=== PATIENT | male | born 1950 ===

== ENCOUNTER 2025-02-09 11:48 | Day surgery (SDC) | payer MEDICARE, OTHER ==
[~2025-02-09] VITALS: Ht 170.2 cm; Wt 99.8 kg
[~2025-02-09 11:48] MED LIST: Balanced Salt Epinephrine Irrigation Solution 500 mL IR SCH; Lidocaine HCl/Pf 1% 5 ML VIAL XX SCH; Moxifloxacin HCL 0.5 MG/0.1 ML 0.4MLSYR RIGHTEYE SCH; PHENYLEPHRINE\\TROPICAMIDE\\TETRACAINE OPHTHALMIC DILATING SOLN RIGHTEYE PRN; Povidone-Iodine 450 DROP/30 ML Solution ONE; Povidone-Iodine 450 DROP/30 ML Solution RIGHTEYE SCH; Tetracaine HCl/Pf 0.5% Opth Soln 4 ml ONE; Triamcinolone Inj Susp 40 MG / ML 1ML Vial INJ SCH; Triamcinolone Inj Susp 40 MG / ML 1ML Vial ONE
[2025-02-09] MEDS ORDERED: DUPIXENT300 MG/21 (12:26)
[2025-02-09] MEDS ORDERED: ROFL500T (12:27)
[2025-02-09] MEDS ORDERED: Triamcinolone A15 G3 (12:27)
[2025-02-09] MEDS ORDERED: FLUO60T (12:27)
[2025-02-09] MEDS ORDERED: ALBU90OI (12:29)
[2025-02-09] MEDS ORDERED: ROPINIROLE HC0.2510 (12:29)
[2025-02-09] MEDS ORDERED: FUROSEMIDE40 MG (12:29)
[2025-02-09] MEDS ORDERED: FLUT1DIS2 (12:30)
[2025-02-09] MEDS ORDERED: IPRAT-ALBUT 0.5-3 ML (12:31)
[2025-02-09] MEDS ORDERED: POTA10T (12:32)
[2025-02-09] MEDS ORDERED: LOSARTAN-HCTZ1 EACH (12:32)
[2025-02-09] MEDS ORDERED: TIOT18 (12:32)
[2025-02-09] MEDS ORDERED: LATANOPROST2.5 M3 (12:33)
[2025-02-09] MEDS ORDERED: Midazolam HCl 1MG / ML 2ML Vial ONE (13:12)
[2025-02-09] MEDS ORDERED: FentaNYL Citrate 50 MCG/ML 2 ML Injection ONE (13:18)
== END 2025-02-09 14:07 | disposition home or self-care (01) ==
LOC: ORSCSDS 11:48
PROVIDERS: Ophthalmology
PROC: 08RJ3JZ Replacement of Right Lens with Synthetic Substitute, Percutaneous Approach (ICD-10-PCS; principal; 2025-02-09 13:00)
PROC: 08923ZZ Drainage of Right Anterior Chamber, Percutaneous Approach (ICD-10-PCS; principal; 2025-02-09 13:00)
DX: H25.813 Combined forms of age-related cataract, bilateral (principal); H40.1112 Primary open-angle glaucoma, right eye, moderate stage; H40.1121 Primary open-angle glaucoma, left eye, mild stage; Z79.899 Other long term (current) drug therapy
CPT/HCPCS: J2250; J3010; J3301; V2632

== ENCOUNTER 2025-02-16 09:58 | Day surgery (SDC) | payer MEDICARE, OTHER ==
[~2025-02-16] VITALS: Ht 170.2 cm; Wt 99.3 kg
[~2025-02-16 09:58] MED LIST changes: +ALBU90OI; +DUPIXENT300 MG/21; +FLUO60T; +FLUT1DIS2; +FUROSEMIDE40 MG; +IPRAT-ALBUT 0.5-3 ML; +LATANOPROST2.5 M3; +LOSARTAN-HCTZ1 EACH; +Midazolam HCl 1MG / ML 2ML Vial ONE; +Moxifloxacin HCL 0.5 MG/0.1 ML 0.4MLSYR LEFTEYE SCH; -Moxifloxacin HCL 0.5 MG/0.1 ML 0.4MLSYR RIGHTEYE SCH; +PHENYLEPHRINE\\TROPICAMIDE\\TETRACAINE OPHTHALMIC DILATING SOLN LEFTEYE PRN; -PHENYLEPHRINE\\TROPICAMIDE\\TETRACAINE OPHTHALMIC DILATING SOLN RIGHTEYE PRN; +POTA10T; +Povidone-Iodine 450 DROP/30 ML Solution LEFTEYE SCH; -Povidone-Iodine 450 DROP/30 ML Solution RIGHTEYE SCH; +ROFL500T; +ROPINIROLE HC0.2510; +TIOT18; +Triamcinolone A15 G3
--- NOTE | 2025-02-16 11:02 | NUR ---
02/16/25 1102 Tomy Redman TETRACAINE ADMININSTERED AT 1041, PLEDGET PLACED AT 1042.
[2025-02-16] MEDS ORDERED: FentaNYL Citrate 50 MCG/ML 2 ML Injection ONE (11:15)
== END 2025-02-16 11:56 | disposition home or self-care (01) ==
LOC: ORSCSDS 09:58
PROVIDERS: Ophthalmology
PROC: 08933ZZ Drainage of Left Anterior Chamber, Percutaneous Approach (ICD-10-PCS; principal; 2025-02-16 11:30)
PROC: 08RK3JZ Replacement of Left Lens with Synthetic Substitute, Percutaneous Approach (ICD-10-PCS; principal; 2025-02-16 11:30)
DX: H25.812 Combined forms of age-related cataract, left eye (principal); Z96.1 Presence of intraocular lens; H40.1112 Primary open-angle glaucoma, right eye, moderate stage; H40.1121 Primary open-angle glaucoma, left eye, mild stage; J44.9 Chronic obstructive pulmonary disease, unspecified; I10 Essential (primary) hypertension; K21.9 Gastro-esophageal reflux disease without esophagitis; Z87.891 Personal history of nicotine dependence; Z79.899 Other long term (current) drug therapy
CPT/HCPCS: J2250; J3010; J3301; V2632